=== PATIENT | female | born 1975 | race Caucasian/White ===

== ENCOUNTER 2016-04-09 10:57 | Emergency (ER) | payer OTHER ==
[2016-04-09 11:06] VITALS: BP 110/81; PULSE 73; TEMP 97.8; BMI 21.9
--- NOTE | 2016-04-09 11:56 | PDOC ---
History of Present Illness - General Chief Complaint: Pain Stated Complaint: RIGHT FOOT PAIN Time Seen by Provider: 04/09/16 11:32 History Source: Patient Exam Limitations: No Limitations - History of Present Illness Initial Comments: CHIEF COMPLAINT: 40 y/o afebrile female with no significant PMH c/o right big toe pain s/p trauma yesterday. HISTORY OF PRESENT ILLNESS: The patient had a desk dropped onto her right big toe yesterday. She states she woke up this morning and the toe was black and blue under the nail and she feels a lot of pressure. She can walk on it but with pain. Vital signs on arrival are within normal limits. REVIEW OF SYSTEMS: GENERAL/CONSTITUTIONAL: No fever/chills. No weakness. No weight change. HEAD, EYES, EARS, NOSE AND THROAT: No change in vision. No ear pain or discharge. No sore throat. MUSCULOSKELETAL: +right big toe pain and swelling. No neck or back pain. SKIN: No rash or easy bruising. NEUROLOGIC: No headache, vertigo, loss of consciousness, or loss of sensation. PHYSICAL EXAM: VITAL_SIGNS: within normal limits GENERAL_APPEARANCE: alert, cooperative, mild obvious discomfort with ambulation. MENTAL_STATUS: speech clear, oriented X 3, responds appropriately to questions. NEURO: motor intact and sensory intact in injured extremity. EXTREMITIES: good pulse in injured extremity. Ecchymosis under 75% of the right 1st toenail. Minimal swelling and erythema to right distal first toe. No obvious deformities. very tender to palpation. SKIN: warm, dry, good color. Past History - Past Medical History Allergies/Adverse Reactions: Allergies Allergy/AdvReac Type Severity Reaction Status Date / Time No Known Allergies Allergy Verified 04/09/16 11:04 Home Medications: Ambulatory Orders NK [No Known Home Medication] 04/09/16 - Psycho/Social/Smoking Cessation Hx Anxiety: No Suicidal Ideation: No Smoking History: Never smoked Have you smoked in the past 12 months: No Information on smoking cessation initiated: No Hx Alcohol Use: No Drug/Substance Use Hx: No Substance Use Type: None *Physical Exam - Vital Signs Last Vital Signs Temp Pulse Resp BP Pulse Ox 97.8 F 73 18 110/81 100 04/09/16 11:04 04/09/16 11:04 04/09/16 11:04 04/09/16 11:04 04/09/16 11:04 Procedures - Nail Trephination Nail Trephination Location: right 1st toenail Method of Drainage: 18 gauge needle Sterile Dressing Applied: No Medical Decision Making - Medical Decision Making A/P: 40 y/o female with right 1st toe trauma. Plan is as follows: 1. Nail trephination 2. Xray right toe Pt tolerated nail trephination well. Xray right toe IMPRESSION: No acute bony abnormalities Will cover affected toe. Suggested the patient keep toe clean, dry and covered. Suggested she ice it as well. The patient verbalizes understanding of all instructions, has no further questions and is awaiting discharge. *DC/Admit/Observation/Transfer Diagnosis at time of Disposition: Injury of toe Qualifiers: Encounter type: initial encounter Laterality: right Qualified Code(s): S99.921A - Unspecified injury of right foot, initial encounter Traumatic ecchymosis of toe of right foot Qualifiers: Encounter type: initial encounter Qualified Code(s): S90.121A - Contusion of right lesser toe(s) without damage to nail, initial encounter - Discharge Dispostion Disposition: HOME Condition at time of disposition: Improved - Referrals Referrals: Miky Shah MD [Primary Care Provider] - - Patient Instructions Printed Discharge Instructions: DI for Nail Bed Injury Additional Instructions: Discharge Instructions: -Keep toe clean, dry and covered -Apply ice to the affected toe -Take Motrin if needed for pain -Return to the ER with any worsening or concerning symptoms
== END 2016-04-09 12:30 | disposition home or self-care (01) ==
LOC: MERGE 10:57 → JERFT 10:57
PROC: 0H9RXZZ Drainage of Toe Nail, External Approach (ICD-10-PCS; principal; 2016-04-09)
DX: S90.211A Contusion of right great toe with damage to nail, initial encounter (principal); W20.8XXA Other cause of strike by thrown, projected or falling object, initial encounter; Y93.89 Activity, other specified; Y92.89 Other specified places as the place of occurrence of the external cause
CPT/HCPCS: 73660-TC; 99281-25